=== PATIENT | female | born 1955 | race American Indian/Alaskan Native ===

== ENCOUNTER 2016-10-17 16:11 | Outpatient (CLI) | payer OTHER ==
--- NOTE | 2016-10-18 07:59 | XRay Report ---
CHEST XRAY, 2 VIEWS: History: Chest pain. Findings: There is mild diffuse interstitial coarsening. The lungs are hyperexpanded but clear. No infiltrate, pleural fluid or pneumothorax is detected. The cardiac silhouette and pulmonary vasculature are within normal limits for technique. The bony thorax is unremarkable. IMPRESSION: Changes consistent with COPD. No acute cardiopulmonary process.
--- NOTE | 2016-10-18 08:01 | XRay Report ---
CERVICAL SPINE, 3 views: History: Neck pain, cervicalgia. There is loss of the normal cervical lordotic curve suggestive of muscle spasm. Mild to moderate degenerative disc disease is identified at C4-5, C5-6 and C6-7. Anterior bridging osteophytes are suspected at these levels. Minimal arthritic changes are suspected in the facet joints throughout the cervical spine. No fracture or bone lesion is identified. The prevertebral soft tissues are unremarkable. IMPRESSION: Reversal of the normal cervical lordosis. Degenerative changes. No acute process noted.
== END 2016-10-17 16:12 | disposition home or self-care (01) ==
LOC: SPVIMAG 16:11
DX: M50.320 Other cervical disc degeneration, mid-cervical region, unspecified level (principal); M47.892 Other spondylosis, cervical region; M25.78 Osteophyte, vertebrae
CPT/HCPCS: 71020; 72040

== ENCOUNTER 2017-02-20 08:21 | Outpatient (CLI) | payer OTHER ==
[2017-02-20 09:30] LABS: Basophils % (Auto) 0.2 % (0.0-1.8); Hematocrit 38.3 % (30.3-42.9); Mean Corpuscular HGB Conc 34 % (30-34); Mean Corpuscular Hemoglobin 30 pg (28-32); Mean Corpuscular Volume 87 fl (79-97); Platelet Count 152 K/mm3 (140-440); Red Blood Count 4.41 M/mm3 (3.65-5.03); White Blood Count 6.1 K/mm3 (4.5-11.0)
[2017-02-20 09:50] LABS: Anion Gap 15 mmol/L; BUN/Creatinine Ratio 17.14; Blood Urea Nitrogen 12 mg/dL (7-17); Calcium 8.8 mg/dL (8.4-10.2); Carbon Dioxide 22 mmol/L (22-30); Glucose 92 mg/dL (65-100); Potassium 4.1 mmol/L (3.6-5.0); Sodium 134 mmol/L (137-145)
[2017-02-20] MEDS ORDERED: SUBLIMAZE ONE (09:58)
[2017-02-20] MEDS ORDERED: VERSED IV ONE ×2 (09:58→10:52)
[2017-02-20 09:59] LABS: INR 1.17 (0.87-1.13); Partial Thromboplastin Time 29.2 Sec. (24.2-36.6)
[2017-02-20] MEDS ORDERED: SUBLIMAZE IV ONE (10:52)
[2017-02-20] MEDS ORDERED: NORCO 5/325 PO ONE (12:04)
--- NOTE | 2017-02-20 12:04 | Cat Scan Report ---
CT BIOPSY BONE SUPERFICIAL HISTORY: Manubrial mass DESCRIPTION OF PROCEDURE: The initial scan of the chest demonstrates a lytic lesion in the manubrium measuring up to 3 x 2 cm. There is also abnormal soft tissue mass anterior and posterior to the manubrium. Informed consent was obtained. Sterile technique was utilized. 1% lidocaine for skin anesthesia. Conscious sedation was accomplished with Versed and fentanyl. The patient was sedated for 20 minutes. Intra-observer time of 20 minutes. Independent cardiorespiratory monitoring by RN. Using CT guidance, an 18-gauge Franseen needle was advanced into the lytic lesion in the manubrium. 2 fine needle aspirations were obtained. A 17-gauge introducer needle was advanced into the anterior manubrial soft tissue mass. Two 18-gauge core biopsies were obtained. Pathology was present to handle the samples. They were deemed adequate. No complications. IMPRESSION: Successful CT-guided fine needle aspiration and biopsy of the manubrial mass as described.
[2017-02-20 12:39] VITALS: BP 117/84
== END 2017-02-20 12:55 | disposition home or self-care (01) ==
LOC: CT 08:21 → OPU 08:21
DX: R22.2 Localized swelling, mass and lump, trunk (principal); Z87.891 Personal history of nicotine dependence
CPT/HCPCS: 20220; 36415; 77012; 80048; 85025; 85610; 85730; 88307; 88342; J2250; J3010

== ENCOUNTER 2018-08-14 13:24 | Outpatient (CLI) | payer OTHER ==
--- NOTE | 2018-08-14 16:14 | XRay Report ---
X-RAY METASTATIC BONE SURVEY:08/14/18 CLINICAL: Sarcoma of the manubrium. Status post CT biopsy of the manubrium 02/20/17. FINDINGS: Lateral skull: Negative Cervical spine: Negative except for degenerative change. Thoracic spine: Negative except for an age-indeterminate mild wedge compression fracture of T12. No underlying lesion to suggest pathologic fracture. The fracture is new since 10/17/16 chest x-ray. Lumbar spine: Negative except for degenerative change. Chest and ribs: Negative. A manubrial lesion is identified on the PA chest. Bilateral humerus: Negative Pelvis and hips: Negative Bilateral femur: Negative IMPRESSION: 1. Negative for suspicious bone lesions. 2. 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
== END 2018-08-14 13:25 | disposition home or self-care (01) ==
LOC: SPVIMAG 13:24
PROVIDERS: ATTEND Internal Medicine Hematology & Oncology
DX: C90.30 Solitary plasmacytoma not having achieved remission (principal); M81.0 Age-related osteoporosis without current pathological fracture; M19.90 Unspecified osteoarthritis, unspecified site; Z78.0 Asymptomatic menopausal state; Z87.891 Personal history of nicotine dependence
CPT/HCPCS: 77074